=== PATIENT | male | born 1965 | race Hispanic/Latino ===

== ENCOUNTER 2022-12-04 08:35 | Outpatient (CLI) | payer OTHER ==
[2022-12-04] MEDS ORDERED: Magnevist 469MG/ML 20 ML VIAL ONE (14:14)
== END 2022-12-04 08:36 | disposition home or self-care (01) ==
LOC: MRI 08:35
PROVIDERS: ATTEND Specialist
DX: I63.81 Other cerebral infarction due to occlusion or stenosis of small artery (principal)
CPT/HCPCS: 70553; A9579